=== PATIENT | female | born 1985 | race Caucasian/White ===

== ENCOUNTER 2017-05-07 11:20 | Day surgery (SDC) | payer OTHER ==
[~2017-05-07] VITALS: Ht 162.6 cm; Wt 59.0 kg
[2017-05-07 12:01] VITALS: BP 107/69
[2017-05-07] MEDS ORDERED: LACTATED RINGERS 1,000 ML IV SCH (12:03)
[2017-05-07] MEDS ORDERED: PLEASE ENTER ALLERGIES MC SCH ×2 (12:30)
[2017-05-07] MEDS ORDERED: ZOFRAN PO (12:36)
[2017-05-07] MEDS ORDERED: FENTANYL PF 100 MCG/2ML ONE (12:53)
[2017-05-07] MEDS ORDERED: MIDAZOLAM 1 MG/ML, 2ML ONE (12:55)
[2017-05-07] MEDS ORDERED: SILVER NITRATE STICK TP ONE (12:55)
[2017-05-07] MEDS ORDERED: METHYLERGONOVINE 0.2 MG/ML IM ONE (12:55)
[2017-05-07] MEDS ORDERED: MISOPROSTOL 200 MCG TABLET ONE (12:55)
[2017-05-07] MEDS ORDERED: KETOROLAC 30 MG/1 ML ONE (13:13)
[2017-05-07] MEDS ORDERED: CEFAZOLIN 1,000 MG ONE (13:13)
[2017-05-07] MEDS ORDERED: DEXAMETHASONE 4 MG/ML, 1ML ONE (13:13)
[2017-05-07] MEDS ORDERED: PROPOFOL 10 MG/ML, 20ML ONE (13:13)
[2017-05-07] MEDS ORDERED: ONDANSETRON 2MG/ML, 2ML ONE (13:13)
[2017-05-07] MEDS ORDERED: FENTANYL PF 100 MCG/2ML IV PRN (13:30)
[2017-05-07] MEDS ORDERED: ACETAMINOPHEN 325 MG TABLET PO PRN (13:30)
[2017-05-07] MEDS ORDERED: HYDROmorphone 1 MG/ML, 1ML IV PRN (13:30)
[2017-05-07] MEDS ORDERED: ONDANSETRON 2MG/ML, 2ML IVPush PRN (13:30)
[2017-05-07] MEDS ORDERED: PROMETHAZINE 25 MG/ML, 1ML IV PRN (13:30)
[2017-05-07] MEDS ORDERED: OXYcodone 5 MG/5 ML ORAL.SOL UDC PO PRN (13:30)
[2017-05-07] MEDS ORDERED: MEPERIDINE/PF 25MG/0.5ML IVPush PRN (13:30)
[2017-05-07] MEDS ORDERED: ACETAMINOPHEN 650 MG/20.3 ML UDC ONE (13:58)
[2017-05-07] MEDS ORDERED: OXYcodone 5 MG/5 ML ORAL.SOL UDC ONE (14:36)
== END 2017-05-07 16:25 | disposition home or self-care (01) ==
LOC: OUT 11:20
PROVIDERS: ATTEND Obstetrics & Gynecology Gynecology
DX: O02.1 Missed abortion (principal); Z3A.01 Less than 8 weeks gestation of pregnancy; Z88.2 Allergy status to sulfonamides; Z81.8 Family history of other mental and behavioral disorders; Z82.3 Family history of stroke
CPT/HCPCS: 36415; 85025; 86850; 86900; 88305; J0690; J1100; J1885; J2250; J2405; J2704; J3010; J7120; J2210

== ENCOUNTER 2017-05-11 02:18 | Emergency (ER) | payer OTHER ==
[~2017-05-11] VITALS: Ht 162.6 cm; Wt 62.1 kg
[~2017-05-11 02:18] MED LIST: ZOFRAN PO
[2017-05-11] MEDS ORDERED: OXYC-302 PO (02:52)
[2017-05-11] MEDS ORDERED: IBUP200C PO (02:52)
[2017-05-11] MEDS ORDERED: SODIUM CHLORIDE 0.9% 1,000ML IVBOLUS ONE (03:00)
[2017-05-11] MEDS ORDERED: SODIUM CHLORIDE FLUSH 10ML SYR IVF ONE (03:00)
[2017-05-11 03:15] LABS: BLOOD UREA NITROGEN 13 mg/dL (7-18)
[2017-05-11 04:32] VITALS: BP 97/58
== END 2017-05-11 05:40 | disposition home or self-care (01) ==
LOC: ED 05:09
DX: N93.8 Other specified abnormal uterine and vaginal bleeding (principal); Z98.890 Other specified postprocedural states
CPT/HCPCS: 36415; 76830; 80048; 82040; 85025; 99285

== ENCOUNTER 2018-06-14 17:26 | Outpatient (CLI) | payer OTHER ==
[~2018-06-14] VITALS: Ht 162.6 cm; Wt 75.5 kg
[~2018-06-14 17:26] MED LIST changes: +IBUP-1623 PO; +OXYC-302 PO
[2018-06-14 17:30] VITALS: BP 128/70
[2018-06-14 17:58] LABS: MICROSCOPIC INDICATED
== END 2018-06-14 18:49 | disposition home or self-care (01) ==
LOC: LDOP 17:26
PROVIDERS: ATTEND Obstetrics & Gynecology Gynecology
DX: O26.893 Other specified pregnancy related conditions, third trimester (principal); R10.9 Unspecified abdominal pain; Z3A.36 36 weeks gestation of pregnancy
CPT/HCPCS: 59025; 81001; 87086; 99211; G0463

== ENCOUNTER 2018-06-29 20:08 | Outpatient (CLI) | payer OTHER ==
[2018-06-29 20:30] VITALS: BP 119/69
[2018-06-29 21:48] LABS: MICROSCOPIC INDICATED
== END 2018-06-29 22:20 | disposition home or self-care (01) ==
LOC: LDOP 20:08
PROVIDERS: ATTEND Obstetrics & Gynecology Gynecology
DX: O26.893 Other specified pregnancy related conditions, third trimester (principal); R10.9 Unspecified abdominal pain; Z3A.38 38 weeks gestation of pregnancy
CPT/HCPCS: 59025; 81001; 87086; 99211; G0463

== ENCOUNTER 2018-07-03 20:17 | Inpatient (IN) | payer OTHER ==
[~2018-07-03] VITALS: Ht 162.6 cm; Wt 76.8 kg
[2018-07-03 20:35] VITALS: BP 123/75
[2018-07-03] MEDS ORDERED: OXYTOCIN 30U/ 0.9% NaCL 500ML 500 ML IV PRN (20:49)
[2018-07-03] MEDS ORDERED: OXYTOCIN 30U/ 0.9% NaCL 500ML 500 ML IV ONE (20:49)
[2018-07-03] MEDS ORDERED: D5%-LACTATED RINGERS 1,000 ML IV SCH (20:49)
[2018-07-03] MEDS ORDERED: OXYTOCIN 30U/ 0.9% NaCL 500ML 500 ML ONE (20:53)
[2018-07-03] MEDS ORDERED: NEWBORN KIT ONE ×2 (20:53)
[2018-07-03] MEDS ORDERED: MISOPROSTOL 200 MCG TABLET ONE (20:54)
[2018-07-03] MEDS ORDERED: LIDOCAINE/PF 1%, 30ML ONE (20:54)
[2018-07-03] MEDS: LACTATED RINGERS 1,000 ML IV SCH (20:55)
[2018-07-03] MEDS ORDERED: FENTANYL PF 100 MCG/2ML IVPush PRN (21:00)
[2018-07-03] MEDS ORDERED: FENTANYL PF 100 MCG/2ML IV PRN (21:00)
[2018-07-03] MEDS ORDERED: CALCIUM CARBONATE 500 MG TAB.CHEW PO PRN (21:00)
[2018-07-03] MEDS ORDERED: TERBUTALINE 1 MG/ML, 1ML IVPush PRN (21:00)
[2018-07-03] MEDS ORDERED: ONDANSETRON 2MG/ML, 2ML IVPush PRN (21:00)
[2018-07-03 21:23] LABS: BASOPHILS # (AUTO) 0.05 x10^3/uL (0-0.1); BASOPHILS % (AUTO) 0 % (0-1); EOSINOPHILS # (AUTO) 0.04 x10^3/uL (0-0.4); EOSINOPHILS % (AUTO) 0 % (1-7); LYMPHOCYTES % (AUTO) 18 % (22-44); MD NO; MEAN CORPUSCULAR HEMOGLOBIN 29.7 pg (27.0-34.8); MEAN CORPUSCULAR VOLUME 87.5 fL (80-100); MEAN PLATELET VOLUME 9.1 fL (7.4-10.4); MONOCYTES # (AUTO) 0.98 x10^3/uL (0.2-0.8); MONOCYTES % (AUTO) 9 % (2-9); NEUTROPHILS % (AUTO) 73 % (42-75); PLATELET COUNT 225 x10^3/uL (130-400); RED BLOOD COUNT 4.27 x10^6/uL (3.82-5.3); RED CELL DISTRIBUTION WIDTH 13.9 % (9.6-15.2)
[2018-07-03] MEDS ORDERED: FENTANYL/BUPIV./NS/PF 250 ML EPIDCONT SCH (23:33)
[2018-07-03] MEDS ORDERED: FENTANYL PF 100 MCG/2ML ONE (23:34)
[2018-07-04] MEDS ORDERED: FENTANYL PF 100 MCG/2ML ONE (00:25)
[2018-07-04] MEDS ORDERED: BUPIVACAINE 0.25% ONE (00:26)
[2018-07-04] MEDS: LACTATED RINGERS 1,000 ML IV SCH (00:35)
[2018-07-04] MEDS ORDERED: LACTATED RINGERS 1,000 ML IV SCH (00:55)
[2018-07-04] MEDS ORDERED: FENTANYL/BUPIV./NS/PF 250 ML EPIDCONT SCH (00:55)
[2018-07-04] MEDS ORDERED: ONDANSETRON 2MG/ML, 2ML IVPush PRN (01:00)
[2018-07-04] MEDS ORDERED: EPHEDRINE 50 MG/ML, 1ML IVPush PRN (01:00)
[2018-07-04] MEDS ORDERED: LACTATED RINGERS 1,000 ML IVBOLUS PRN (01:00)
[2018-07-04] MEDS: OXYTOCIN 30U/ 0.9% NaCL 500ML 500 ML IV SCH ×2 (08:42→18:42)
[2018-07-04] MEDS ORDERED: CALCIUM CARBONATE 500 MG TAB.CHEW PO PRN (09:00)
[2018-07-04] MEDS ORDERED: ONDANSETRON 2MG/ML, 2ML IV PRN (09:00)
[2018-07-04] MEDS ORDERED: RHOGAM FROM BLOOD BANK 1 NOTE EA IM/IV ONE (09:00)
[2018-07-04] MEDS ORDERED: DIPH,PERTUSS(ACELL),TET VAC/PF NC IM-VACC PRN (09:00)
[2018-07-04] MEDS ORDERED: MISOPROSTOL 200 MCG TABLET PR PRN (09:00)
[2018-07-04] MEDS ORDERED: OXYcodone/APAP 5/325MG TABLET PO PRN (09:00)
[2018-07-04] MEDS ORDERED: OXYcodone IR 5MG TABLET PO PRN (09:00)
[2018-07-04] MEDS: PRENATAL VIT/IRON/FA 1 EACH TABLET PO SCH (09:00)
[2018-07-04] MEDS ORDERED: MAGNESIUM HYDROXIDE 8%, 30ML UDC PO PRN (09:00)
[2018-07-04] MEDS ORDERED: MEASLES,MUMPS&RUBELLA VACC/PF 0.5 ML SQ-VACC PRN (09:00)
[2018-07-04 11:35] VITALS: BP 109/68
[2018-07-04 15:56] LABS: BASOPHILS # (AUTO) 0.03 x10^3/uL (0-0.1); BASOPHILS % (AUTO) 0 % (0-1); EOSINOPHILS # (AUTO) 0.11 x10^3/uL (0-0.4); EOSINOPHILS % (AUTO) 1 % (1-7); LYMPHOCYTES # (AUTO) 1.66 x10^3/uL (1-3.4); LYMPHOCYTES % (AUTO) 10 % (22-44); MD NO; MEAN CORPUSCULAR HEMOGLOBIN 29.2 pg (27.0-34.8); MEAN CORPUSCULAR HGB CONC 33.5 g/dL (32.4-35.8); MEAN CORPUSCULAR VOLUME 87.2 fL (80-100); MEAN PLATELET VOLUME 8.9 fL (7.4-10.4); MONOCYTES # (AUTO) 1.02 x10^3/uL (0.2-0.8); MONOCYTES % (AUTO) 6 % (2-9); NEUTROPHILS # (AUTO) 14.17 x10^3/uL (1.8-6.8); NEUTROPHILS % (AUTO) 83 % (42-75); PLATELET COUNT 216 x10^3/uL (130-400); RED BLOOD COUNT 4.37 x10^6/uL (3.82-5.3); RED CELL DISTRIBUTION WIDTH 13.9 % (9.6-15.2)
[2018-07-04] MEDS: IBUPROFEN 600 MG TABLET PO PRN (16:22)
[2018-07-04 16:24] VITALS: BP 106/68
[2018-07-04 20:00] VITALS: BP 109/66
[2018-07-04] MEDS ORDERED: ACETAMINOPHEN 325 MG TABLET ONE (21:36)
[2018-07-04] MEDS: DOCUSATE 100 MG CAPSULE PO PRN (21:39)
[2018-07-04] MEDS: ACETAMINOPHEN 325 MG TABLET PO PRN (21:40)
[2018-07-04] MEDS ORDERED: ACETAMINOPHEN 325 MG TABLET PO PRN (22:00)
[2018-07-05] MEDS: IBUPROFEN 600 MG TABLET PO PRN ×2 (00:42→08:35)
[2018-07-05 00:56] VITALS: BP 100/64
[2018-07-05 04:15] VITALS: BP 116/78
[2018-07-05] MEDS: ACETAMINOPHEN 325 MG TABLET PO PRN (04:17)
[2018-07-05] MEDS: OXYTOCIN 30U/ 0.9% NaCL 500ML 500 ML IV SCH (04:42)
[2018-07-05] MEDS: PRENATAL VIT/IRON/FA 1 EACH TABLET PO SCH (08:34)
[2018-07-05] MEDS: DOCUSATE 100 MG CAPSULE PO PRN (08:34)
[2018-07-05 08:35] VITALS: BP 115/74
[2018-07-05] MEDS ORDERED: IBUP-1222 PO (11:00)
== END 2018-07-05 11:40 | disposition home or self-care (01) | DRG 775 ==
LOC: LDOP 20:17 → LDIP 20:54 → 2NW 07-04 10:55
PROVIDERS: ADMIT Obstetrics & Gynecology Gynecology; ATTEND Obstetrics & Gynecology Gynecology
PROC: 10E0XZZ Delivery of Products of Conception, External Approach (ICD-10-PCS; principal; 2018-07-04)
PROC: 3E033VJ Introduction of Other Hormone into Peripheral Vein, Percutaneous Approach (ICD-10-PCS; 2018-07-04)
PROC: 0HQ9XZZ Repair Perineum Skin, External Approach (ICD-10-PCS; 2018-07-04)
PROC: 3E0R3BZ Introduction of Anesthetic Agent into Spinal Canal, Percutaneous Approach (ICD-10-PCS; 2018-07-04)
PROC: 00HU33Z Insertion of Infusion Device into Spinal Canal, Percutaneous Approach (ICD-10-PCS; 2018-07-04)
DX: O42.92 Full-term premature rupture of membranes, unspecified as to length of time between rupture and onset of labor (principal); O70.0 First degree perineal laceration during delivery; Z3A.39 39 weeks gestation of pregnancy; Z37.0 Single live birth; Z82.3 Family history of stroke
CPT/HCPCS: 36415; 82803; 84112; 85025; 86850; 86900; J3010; J2590; J7120

== ENCOUNTER 2020-07-12 15:58 | Inpatient (IN) | payer OTHER ==
[~2020-07-12] VITALS: Ht 162.6 cm; Wt 77.2 kg
[~2020-07-12 15:58] MED LIST changes: +IBUP-1222 PO
[2020-07-12] MEDS ORDERED: TERBUTALINE 1 MG/ML, 1ML ONE (16:21)
[2020-07-12] MEDS ORDERED: LACTATED RINGERS 1,000 ML IVBOLUS ONE (16:30)
[2020-07-12] MEDS ORDERED: TERBUTALINE 1 MG/ML, 1ML SQ ONE (16:30)
[2020-07-12 16:56] LABS: MICROSCOPIC NOT IND
[2020-07-12 17:03] VITALS: BP 117/71
[2020-07-12] MEDS ORDERED: MAGNESIUM SULFATE PMX 4GM/100M 100 ML ONE (17:23)
[2020-07-12] MEDS ORDERED: HYDROmorphone 2 MG/ML, 1ML ONE (17:23)
[2020-07-12] MEDS ORDERED: MAGNESIUM SULF. PMX 20GM/500ML 500 ML IV ONE (17:23)
[2020-07-12] MEDS ORDERED: INDOMETHACIN 50 MG CAPSULE ONE (17:24)
[2020-07-12] MEDS ORDERED: INDOMETHACIN 50 MG CAPSULE PO ONE (17:30)
[2020-07-12] MEDS ORDERED: MAGNESIUM SULFATE PMX 4GM/100M 100 ML IVPB ONE (17:30)
[2020-07-12] MEDS ORDERED: HYDROmorphone 1 MG/ML, 1ML INJ IV ONE (17:30)
[2020-07-12] MEDS: LACTATED RINGERS 1,000 ML IV SCH (17:31)
[2020-07-12 17:37] LABS: MEAN CORPUSCULAR HEMOGLOBIN 28.9 pg (27.0-34.8); MEAN CORPUSCULAR HGB CONC 33.4 g/dL (32.4-35.8); MEAN CORPUSCULAR VOLUME 86.7 fL (80-100); MEAN PLATELET VOLUME 8.5 fL (7.4-10.4); PLATELET COUNT 216 x10^3/uL (130-400); RED BLOOD COUNT 3.79 x10^6/uL (3.82-5.3); RED CELL DISTRIBUTION WIDTH 13.2 % (9.6-15.2)
[2020-07-12 17:46] LABS: ANION GAP 7 mmol/L (5-15); CALCIUM 8.5 mg/dL (8.5-10.1); CHLORIDE 108 mmol/L (98-107); CREATININE 0.83 mg/dL (0.55-1.02)
[2020-07-12 17:47] LABS: ALANINE AMINOTRANSFERASE 15 U/L (12-78); ALBUMIN 2.5 g/dL (3.4-5.0)
[2020-07-12 17:49] LABS: ALKALINE PHOSPHATASE 75 U/L (45-117); BILIRUBIN,TOTAL 0.3 mg/dL (0.2-1.0); TOTAL PROTEIN 6.1 g/dL (6.4-8.2)
[2020-07-12 17:51] LABS: MD YES
[2020-07-12 17:53] LABS: BAND#(MANUAL) 0.78 x10^3/uL; BANDS%(MANUAL) 5 % (0-7); LYMPH#(MANUAL) 1.55 x10^3/uL (1-3.4); LYMPHS% (MANUAL) 10 % (22-44); METAMYELOCYTES# (MANUAL) 0.62 x10^3/uL (0-0); METAMYELOCYTES% (MANUAL) 4 % (0-1); MONOS% (MANUAL) 9 % (2-9); MYELOCYTES# (MANUAL) 0.16 x10^3/uL (0-0); MYELOCYTES% (MANUAL) 1 % (0-0); NRBC % (MANUAL) 2 % (0-1); SEG#(MANUAL) 11.01 x10^3/uL (1.8-6.8); SEGS% (MANUAL) 71 % (42-75)
[2020-07-12 17:54] LABS: <PLATELET ESTIMATE> ADEQUATE; <PLT MORPHOLOGY> NORMAL PLT MORPH; POLYCHROMASIA 1+
[2020-07-12] MEDS ORDERED: ZOLPIDEM 5MG TABLET PO PRN (20:30)
[2020-07-12] MEDS ORDERED: INDOMETHACIN 25 MG CAPSULE ONE (21:38)
[2020-07-12] MEDS ORDERED: ZOLPIDEM 5MG TABLET ONE (21:39)
[2020-07-12] MEDS: INDOMETHACIN 25 MG CAPSULE PO SCH (21:41)
[2020-07-13] MEDS ORDERED: MAGNESIUM SULF. PMX 20GM/500ML 500 ML IV ONE ×2 (02:56→13:02)
[2020-07-13] MEDS: LACTATED RINGERS 1,000 ML IV SCH ×4 (03:01→22:45)
[2020-07-13] MEDS: MAGNESIUM SULF. PMX 20GM/500ML 500 ML IV SCH ×3 (03:06→13:09)
[2020-07-13] MEDS ORDERED: INDOMETHACIN 25 MG CAPSULE ONE ×2 (05:33→13:58)
[2020-07-13] MEDS: INDOMETHACIN 25 MG CAPSULE PO SCH ×2 (05:35→13:59)
[2020-07-13] MEDS ORDERED: DOCUSATE 100 MG CAPSULE ONE (09:41)
[2020-07-13] MEDS: DOCUSATE 100 MG CAPSULE PO SCH (09:43)
[2020-07-13] MEDS ORDERED: LIDOCAINE 1%, 20ML ONE (16:50)
[2020-07-13] MEDS ORDERED: CEFAZOLIN PMX 1GM/50ML 50 ML IV ONE (17:00)
[2020-07-13] MEDS ORDERED: HYDROmorphone 1 MG/ML, 1ML INJ IV ONE (17:00)
[2020-07-13] MEDS ORDERED: HYDROmorphone 2 MG/ML, 1ML ONE (17:01)
[2020-07-13] MEDS ORDERED: CEFAZOLIN 1,000 MG ONE ×2 (17:02→20:09)
[2020-07-13] MEDS ORDERED: HYDROmorphone 2 MG/ML, 1ML IV ONE (17:30)
[2020-07-13] MEDS ORDERED: NEWBORN KIT ONE (18:58)
[2020-07-13] MEDS ORDERED: LACTATED RINGERS 1,000 ML IV SCH (19:09)
[2020-07-13] MEDS ORDERED: METOCLOPRAMIDE 5 MG/ML, 2ML ONE (19:09)
[2020-07-13] MEDS ORDERED: OXYTOCIN 30U/ 0.9% NaCL 500ML 500 ML ONE (19:09)
[2020-07-13] MEDS ORDERED: SODIUM CITRATE/CITRIC ACID 30 ML UDC PO ONE (19:30)
[2020-07-13] MEDS ORDERED: CALCIUM CARBONATE 500 MG TAB.CHEW PO PRN (19:30)
[2020-07-13] MEDS ORDERED: CEFAZOLIN PMX 1GM/50ML 50 ML IVPB ONE (19:30)
[2020-07-13] MEDS ORDERED: AZITHROMYCIN 500 MG in SODIUM CHLORIDE 0.9% 250 ML IV ONE (19:30)
[2020-07-13] MEDS ORDERED: METOCLOPRAMIDE 5 MG/ML, 2ML IV ONE (19:30)
[2020-07-13] MEDS ORDERED: ONDANSETRON 2MG/ML, 2ML IVPush ONE (19:30)
[2020-07-13 19:45] VITALS: BP 109/58
[2020-07-13] MEDS ORDERED: morphine SULFATE/PF 0.5 MG/ML, 10ML ONE (20:05)
[2020-07-13] MEDS ORDERED: KETOROLAC 30 MG/1 ML ONE (20:09)
[2020-07-13] MEDS ORDERED: DEXAMETHASONE 4 MG/ML, 1ML ONE (20:09)
[2020-07-13] MEDS ORDERED: OXYTOCIN 10 UNITS/ML, 1ML ONE (20:09)
[2020-07-13] MEDS ORDERED: WATER-INJECTION,STERILE 10 ML IV ONE (20:09)
[2020-07-13] MEDS ORDERED: ONDANSETRON 2MG/ML, 2ML ONE (20:09)
[2020-07-13] MEDS ORDERED: ONDANSETRON 2MG/ML, 2ML IV PRN (20:30)
[2020-07-13] MEDS ORDERED: DOCUSATE 100 MG CAPSULE PO PRN (20:30)
[2020-07-13] MEDS: KETOROLAC 30 MG/1 ML IV SCH (20:30)
[2020-07-13] MEDS ORDERED: ACETAMINOPHEN 325 MG TABLET PO PRN (20:30)
[2020-07-13] MEDS ORDERED: MISOPROSTOL 200 MCG TABLET PR PRN (20:30)
[2020-07-13] MEDS ORDERED: MORPHINE SULFATE 4 MG/ML, 1ML IVPush PRN (20:30)
[2020-07-13] MEDS ORDERED: OXYcodone 5 MG/5 ML ORAL.SOL UDC ONE (21:44)
[2020-07-13] MEDS: OXYTOCIN 30U/ 0.9% NaCL 500ML 500 ML IV SCH (22:45)
[2020-07-14] VITALS: BP 110/58
[2020-07-14] MEDS: OXYcodone/APAP 5/325MG TABLET PO PRN ×5 (00:22→20:37)
[2020-07-14] MEDS ORDERED: DIPHENHYDRAMINE 50 MG/ML, 1ML ONE (01:10)
[2020-07-14] MEDS ORDERED: DIPHENHYDRAMINE 50 MG/ML, 1ML IVPush PRN (01:30)
[2020-07-14] MEDS: KETOROLAC 30 MG/1 ML IV SCH ×4 (03:02→20:36)
[2020-07-14 03:15] VITALS: BP 110/67
[2020-07-14] MEDS: LACTATED RINGERS 1,000 ML IV SCH ×5 (04:07→20:07)
[2020-07-14] MEDS ORDERED: MORPHINE SULFATE 4 MG/ML, 1ML IVPush PRN (05:00)
[2020-07-14 06:00] LABS: MEAN CORPUSCULAR HEMOGLOBIN 28.7 pg (27.0-34.8); MEAN PLATELET VOLUME 8.7 fL (7.4-10.4); PLATELET COUNT 204 x10^3/uL (130-400); RED BLOOD COUNT 3.51 x10^6/uL (3.82-5.3); RED CELL DISTRIBUTION WIDTH 13.1 % (9.6-15.2)
[2020-07-14] MEDS: OXYTOCIN 30U/ 0.9% NaCL 500ML 500 ML IV SCH ×2 (06:07→16:07)
[2020-07-14 06:56] LABS: BASOPHILS % (AUTO) 0 % (0-1); EOSINOPHILS % (AUTO) 0 % (1-7); LYMPHOCYTES % (AUTO) 8 % (22-44); MD SCAN; MONOCYTES % (AUTO) 6 % (2-9); NEUTROPHILS # (AUTO) 12.29 x10^3/uL (1.8-6.8); NEUTROPHILS % (AUTO) 85 % (42-75)
[2020-07-14 07:00] VITALS: BP 105/65
[2020-07-14] MEDS: PRENATAL VIT/IRON/FA 1 EACH TABLET PO SCH (08:15)
[2020-07-14] MEDS: DOCUSATE 100 MG CAPSULE PO SCH ×2 (08:16→20:37)
[2020-07-14 12:57] VITALS: BP 96/56
[2020-07-14 16:30] VITALS: BP 105/72
[2020-07-14 20:30] VITALS: BP 100/61
[2020-07-14] MEDS: SIMETHICONE 80 MG CHEW TAB PO PRN (20:37)
[2020-07-15] MEDS: OXYcodone/APAP 5/325MG TABLET PO PRN ×5 (01:00→19:23)
[2020-07-15] MEDS: LACTATED RINGERS 1,000 ML IV SCH ×6 (02:07→22:07)
[2020-07-15] MEDS: OXYTOCIN 30U/ 0.9% NaCL 500ML 500 ML IV SCH ×3 (02:07→22:07)
[2020-07-15] MEDS: KETOROLAC 30 MG/1 ML IV SCH ×3 (02:27→14:52)
[2020-07-15] MEDS: SIMETHICONE 80 MG CHEW TAB PO PRN ×2 (05:15→19:23)
[2020-07-15 07:35] VITALS: BP 101/62
[2020-07-15] MEDS: DOCUSATE 100 MG CAPSULE PO SCH ×2 (08:24→19:23)
[2020-07-15] MEDS: PRENATAL VIT/IRON/FA 1 EACH TABLET PO SCH (08:24)
[2020-07-15] MEDS: FERROUS SULFATE 325 MG TABLET PO SCH (16:32)
[2020-07-15 19:20] VITALS: BP 114/75
[2020-07-15] MEDS: IBUPROFEN 600 MG TABLET PO PRN (21:00)
[2020-07-16] MEDS: OXYcodone/APAP 5/325MG TABLET PO PRN ×6 (00:01→21:04)
[2020-07-16] MEDS: SIMETHICONE 80 MG CHEW TAB PO PRN ×3 (03:09→21:04)
[2020-07-16] MEDS: IBUPROFEN 600 MG TABLET PO PRN ×4 (03:09→21:03)
[2020-07-16] MEDS: LACTATED RINGERS 1,000 ML IV SCH ×5 (04:07→20:07)
[2020-07-16 07:53] VITALS: BP 112/73
[2020-07-16] MEDS: OXYTOCIN 30U/ 0.9% NaCL 500ML 500 ML IV SCH ×2 (08:07→18:07)
[2020-07-16] MEDS: DOCUSATE 100 MG CAPSULE PO SCH ×2 (08:44→21:04)
[2020-07-16] MEDS: FERROUS SULFATE 325 MG TABLET PO SCH ×2 (08:44→16:55)
[2020-07-16] MEDS: PRENATAL VIT/IRON/FA 1 EACH TABLET PO SCH (08:44)
[2020-07-16 21:00] VITALS: BP 111/71
[2020-07-17] MEDS: OXYcodone/APAP 5/325MG TABLET PO PRN (02:18)
[2020-07-17] MEDS: SIMETHICONE 80 MG CHEW TAB PO PRN (03:05)
[2020-07-17] MEDS: IBUPROFEN 600 MG TABLET PO PRN (03:05)
[2020-07-17] MEDS: OXYTOCIN 30U/ 0.9% NaCL 500ML 500 ML IV SCH (04:07)
[2020-07-17] MEDS: LACTATED RINGERS 1,000 ML IV SCH ×2 (04:07)
[2020-07-17 08:00] VITALS: BP 116/68
[2020-07-17] MEDS: DOCUSATE 100 MG CAPSULE PO SCH (08:48)
[2020-07-17] MEDS: FERROUS SULFATE 325 MG TABLET PO SCH (08:48)
[2020-07-17] MEDS: PRENATAL VIT/IRON/FA 1 EACH TABLET PO SCH (09:00)
[2020-07-17] MEDS ORDERED: IBUP-1222 PO (10:52)
[2020-07-17] MEDS ORDERED: OXYC-302 PO (10:53)
== END 2020-07-17 18:10 | disposition home or self-care (01) | DRG 786 ==
LOC: LDOP 15:58 → LDIP 16:20 → OBSVTOIN 16:20 → 2NW 07-13 23:49
PROVIDERS: ADMIT Student in an Organized Health Care Education/Training Program; ATTEND Student in an Organized Health Care Education/Training Program
PROC: 10D00Z1 Extraction of Products of Conception, Low, Open Approach (ICD-10-PCS; principal; 2020-07-13)
PROC: 10903ZC Drainage of Amniotic Fluid, Therapeutic from Products of Conception, Percutaneous Approach (ICD-10-PCS; 2020-07-13)
DX: O32.1XX2 Maternal care for breech presentation, fetus 2 (principal); Z3A.30 30 weeks gestation of pregnancy; O60.14X0 Preterm labor third trimester with preterm delivery third trimester, not applicable or unspecified; Z37.2 Twins, both liveborn; O41.03X0 Oligohydramnios, third trimester, not applicable or unspecified; O30.033 Twin pregnancy, monochorionic/diamniotic, third trimester; D64.9 Anemia, unspecified; O40.3XX2 Polyhydramnios, third trimester, fetus 2; O43.023 Fetus-to-fetus placental transfusion syndrome, third trimester; O76 Abnormality in fetal heart rate and rhythm complicating labor and delivery; O99.02 Anemia complicating childbirth; Z20.828 Contact with and (suspected) exposure to other viral communicable diseases
CPT/HCPCS: 36415; 80053; 81003; 82803; 83735; 85025; 85460; 86850; 86900; 87081; 87635; 99285; G0378; J0456; J0690; J1100; J1170; J1885; J2274; J2405; J1200; J2590; J2765; J3105; J3475; J7050; J7120